=== PATIENT | male | born 1955 | race Caucasian/White ===

== ENCOUNTER → 2025-04-02 | Outpatient (CLI) | payer OTHER, SELFPAY ==
--- NOTE | 2025-04-02 08:57 | XR_ITS ---
Examination: PA lateral chest 2 views TECHNIQUE: Upright PA lateral chest 2 views Date and time: April 12, 2025 at 0910 hours Comparison July 16, 2023 INDICATIONS: Hypertension history, history pulmonary nodule FINDINGS: Stable calcified pulmonary nodule left upper lobe Pleural parenchymal scarring left hemithorax, the pleural thickening more prominent compared to the July 16, 2023 exam Normal heart size Moderate osteopenia IMPRESSION: Stable calcified granuloma left upper lobe Pleural thickening along the left lateral thoracic wall is more prominent compared to July 16, 2023, recommend 3 month follow-up PA lateral chest x-ray
[2025-04-02 10:03] LABS: Basophils # (Auto) 0.0 Thou/mm3 (0.0-0.2); Basophils % (Auto) 0 % (0-2.5); Eosinophils # (Auto) 0.2 Thou/mm3 (0.0-0.5); Eosinophils % (Auto) 3 % (0-10); Hematocrit 43.6 % (41.0-53.0); Hemoglobin 14.4 g/dL (13.5-16.0); Immature Granulocytes Auto 0.04 Thou/mm3 (0.00-0.00); Lymphocytes # (Auto) 1.7 Thou/mm3 (1.0-4.8); Lymphocytes % (Auto) 19 % (10-50); Mean Corpuscular HGB Conc 33.0 g/dl (31.0-37.0); Mean Corpuscular Hemoglobin 32.6 pg (25.0-35.0); Mean Corpuscular Volume 99 fL (80-100); Monocytes # (Auto) 0.5 Thou/mm3 (0.0-0.8); Monocytes % (Auto) 6 % (0-12); Neutrophils # (Auto) 6.6 Thou/mm3 (1.8-7.7); Neutrophils % (Auto) 72 % (37-80); Nucleated Red Blood Cell # 0.00 Thou/mm3 (0.00-0.00); Nucleated Red Blood Cell % 0 /100 WBC (0); Platelet Count 217 Thou/mm3 (140-440); RDW Standard Deviation 45.8 fL (35.1-43.9); Red Blood Count 4.42 Miln/mm3 (4.50-5.90); White Blood Count 9.2 Thou/mm3 (3.8-10.6)
[2025-04-02 10:10] LABS: Glucose Estimated Average 111 mg/dL (80-131); Hemoglobin A1C 5.5 % Hgb (4.8-6.0)
[2025-04-02 10:21] LABS: Iron 104 mcg/dL (65-175); Prostate Specific Antigen 0.86 ng/mL (0-4.00)
[2025-04-02 10:23] LABS: Alanine Aminotransferase 17 U/L (10-49); Albumin, Serum 4.5 gm/dL (3.4-4.8); Albumin/Globulin Ratio 1.8 (1.2-2.2); Alkaline Phosphatase 59 U/L (46-116); Anion Gap 12 (7-16); Aspartate Amino Transferase 15 U/L (0-34); BUN/Creatinine Ratio 13 Ratio (12-20); Bilirubin,Total 1.0 mg/dL (0.3-1.2); Blood Urea Nitrogen 14 mg/dL (9-23); Calcium 11.1 mg/dL (8.3-10.6); Calcium (Corrected) 11.1 mg/dL (8.5-10.1); Carbon Dioxide 25.8 mMol/L (20.0-31.0); Cardiac Risk Estimate 4.9 RATIO (4.0-6.7); Chloride 104 mMol/L (98-107); Cholesterol 180 mg/dL (132-200); Creatinine (Component) 1.1 mg/dL (0.6-1.3); Folate 16.37 ng/mL (>5.38); Free T4 (Free Thyroxine) 1.30 ng/dL (0.89-1.76); Globulin 2.5 gm/dL (2.3-3.5); Glucose 124 mg/dL (74-106); HDL Cholesterol 37 mg/dL (40-60); LDL Cholesterol,Calculated 110 mg/dL (0-130); Magnesium 1.8 mg/dL (1.6-2.6); Osmolality,Calculated 284 (275-295); Potassium 4.1 mMol/L (3.4-5.1); Sodium 142 mMol/L (136-145); Thyroid Stimulating Hormone 1.89 uIU/mL (0.55-4.78); Total Protein 7.0 gm/dL (5.7-8.2); Triglycerides 167 mg/dL (30-150); Vitamin B12 1814 pg/mL (211-911); Vitamin D 25 Hydroxy Total 29.3 ng/mL (7.3-40.2); eGFR > 60 See Note
[2025-04-12 06:38] LABS: Testosterone, Free,Dialysis 27.7 pg/mL (35.0-155.0); Testosterone, Total, Dialysis 186 ng/dL (250-1100)
== END | disposition home or self-care (01) ==
LOC: COPL 08:46 → CDIM 04-21 12:43
PROVIDERS: PCP Internal Medicine; Referring Provider Internal Medicine; Visit Provider Internal Medicine
DX: J84.10 Pulmonary fibrosis, unspecified (principal); R22.2 Localized swelling, mass and lump, trunk
CPT/HCPCS: 36415; 71046; 80053; 80061; 82306; 82607; 82746; 83036; 83540; 83735; 84153; 84402; 84403; 84439; 84443; 85025

== ENCOUNTER → 2025-05-05 | Outpatient (CLI) | payer OTHER, SELFPAY ==
--- NOTE | 2025-05-05 15:07 | XR_ITS ---
Examination: Lumbar spine, 5 views Technique: Lumbar spine AP, lateral, coned lateral lower lumbar spine, bilateral obliques 5 views Exam date and time: May 05, 2025, 1516 hours INDICATIONS: Back pain years FINDINGS: Moderate osteopenia. Prominent lumbar spondylosis. Advanced degenerative disc disease L5-S1. No fracture No spondylolisthesis Impression::: Advanced degenerative disc disease L5-S1
== END | disposition home or self-care (01) ==
LOC: SDIM 15:01
PROVIDERS: Referring Provider Physical Medicine & Rehabilitation Pain Medicine; Visit Provider Physical Medicine & Rehabilitation Pain Medicine
DX: M51.370 Other intervertebral disc degeneration, lumbosacral region with discogenic back pain only (principal)
CPT/HCPCS: 72110

== ENCOUNTER → 2025-07-26 | Outpatient (CLI) | payer OTHER, SELFPAY ==
--- NOTE | 2025-07-26 15:30 | XR_ITS ---
EXAMINATION: PA chest lateral 2 views TECHNIQUE: Upright PA lateral chest 2 views INDICATIONS: Dyspnea Date and time: July [place] 2024, 1546 hours, comparison April 02, 2025, December 10, 2017 FINDINGS: Calcified granuloma left upper lobe Moderate hyperexpansion Scarring in the lingular segment Ectatic thoracic aorta Accentuation basilar bronchovascular markings IMPRESSION: COPD Basilar bronchitis pattern
== END | disposition home or self-care (01) ==
LOC: CDIM 15:18
PROVIDERS: PCP Internal Medicine; Referring Provider Internal Medicine; Visit Provider Internal Medicine
DX: J44.9 Chronic obstructive pulmonary disease, unspecified (principal)
CPT/HCPCS: 71046